=== PATIENT | male | born 1950 | race Caucasian/White ===

== ENCOUNTER → 2021-06-24 | Outpatient (CLI) | payer OTHER ==
--- NOTE | 2021-06-24 12:22 | 2DMMODE ---
[facility] [address] [place] [address] 2 D/M-MODE ECHOCARDIOGRAM Name: MAGGIE DUNLAP Room #: REG IVAN Landry#: [id number] Admission: 06/24/21 Attend Phys: Richard Forrester Discharge: Date of : 46 Report #: [id number] THIS REPORT FOR: cc: FAM - Family physician unknown FAM - Family physician unknown Reinaldo Araiza MD [facility] ~ APPROVED REPORT Study performed: 06/24/2021 11:11:55 EXAM: Comprehensive 2D, Doppler, and color-flow Echocardiogram Patient Location: Out-Patient Room #: 2 Status: routine BSA: 2.20 HR: 60 bpm BP: 126/72 mmHg Rhythm: Pacemaker Other Information Study Quality: Technically Difficult Technically limited study due to body habitus, inability to position patient, left leg amputee. Indications Pacemaker CAD 2D Dimensions IVSd: 10.24 (7-11mm) LVOT Diam: 21.18 (18-24mm) LVDd: 53.14 mm PWd: 10.49 (7-11mm) Ascending Ao: 34.40 (22-36mm) LVDs: 34.25 (25-40mm) Left Atrium: 44.99 (27-40mm) Aortic Root: 35.38 mm Aortic Valve AoV Peak Rajinder.: 1.02 m/s AO Peak Gr.: 4.13 mmHg LVOT Max P.02 mmHg LVOT Max V: 0.71 m/s CHRISTINA Vmax: 2.46 cm2 Pulmonary Valve PV Peak Rajinder.: 0.77 m/s PV Peak Gr.: 2.40 mmHg [facility] [address] [place] [address] 2 D/M-MODE ECHOCARDIOGRAM Name: MAGGIE DUNLAP Room #: REG CL Katie#: [id number] Admission: 06/24/21 Attend Phys: Richard Barrera Discharge: Date of : 46 Report #: [id number] Left Ventricle The left ventricle is normal size. Paradoxical septal motion consistent with paced rhythm. There is normal left ventricular wall thickness. The left ventricular systolic function is normal. The left ventricular ejection fraction is within the normal range. LVEF is 50%. This study is not technically sufficient to allow evaluation of the LV diastolic function. Right Ventricle The right ventricle is normal size. The right ventricular systolic function is normal. Linear density seen in the RV suggestive of a pacer wire Atria Left atrium is dilated. Right atrium is at the upper limits of normal. Aortic Valve The aortic valve is normal in structure. No aortic regurgitation is present. There is no aortic valvular stenosis. Mitral Valve The mitral valve is normal in structure. Trace to mild mitral regurgitation. No evidence of mitral valve stenosis. Tricuspid Valve The tricuspid valve is normal in structure. There is no tricuspid valve regurgitation noted. Pulmonic Valve The pulmonary valve is normal in structure. There is no pulmonic valvular regurgitation. Great Vessels The aortic root is normal in size. The inferior vena cava is not well visualized. Pericardium There is no pericardial effusion. <Conclusion> Technically a difficult study Normal left ventricle size/wall thickness Ejection fraction 50% with moderate anterior wall hypokineses, septum not well seen [facility] [address] [place] [address] 2 D/M-MODE ECHOCARDIOGRAM Name: PALAKLILYMAGGIE CROUCH Room #: REG CL [facility].#: [id number] Admission: 06/24/21 Attend Phys: Richard Barrera Discharge: Date of : 46 Report #: [id number] Normal right ventricle size/function Normal atrial size Aortic valve mildly calcified without stenosis Mild mitral annular calcification without stenosis Mild mitral valve insufficiency No tricuspid valve insufficiency No pericardial effusion Normal aortic root size <ELECTRONICALLY SIGNED> By: Reinaldo Araiza MD, FACC 06/24/211220 20 20 Reinaldo Araiza MD, FACC /INF
== END ==
LOC: CV 10:44
PROVIDERS: ATTEND Chiropractor
DX: I34.0 Nonrheumatic mitral (valve) insufficiency (principal); I25.10 Atherosclerotic heart disease of native coronary artery without angina pectoris